=== PATIENT | female | born 1975 | race Caucasian/White ===

== ENCOUNTER 2017-07-22 12:29 | Inpatient (IN) | payer MEDICAID ==
[2017-07-22] MEDS ORDERED: Ondansetron 4 MG/2 ML SDV IVPUSH ONE (12:43)
[2017-07-22] MEDS ORDERED: Sodium Chloride 0.9% 10 ML Syringe FLUSH PRN (12:43)
[2017-07-22] MEDS ORDERED: Sodium Chloride 0.9% 2.5 ML Syringe FLUSH PRN (12:43)
[2017-07-22] MEDS ORDERED: Sodium Chloride 0.9% 1,000 ML IV ONE (12:43)
[2017-07-22] MEDS ORDERED: Ketorolac 30 MG/ML SDV IVPUSH ONE (12:48)
[2017-07-22] MEDS ORDERED: Insulin Regular, Human 100 Units/ML 10 ML Vial SUBCUT ONE (12:48)
--- NOTE | 2017-07-22 12:54 | EDM.PDOC ---
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 Was noted that her blood sugar was elevated and she was also complaining of some left flank pain and vomiting. The patient had a CBC BMP UA and urine culture performed in the clinic and was noted that her blood sugar was 443, a positive urine for UTI, and she had an elevated WBC count of 16,000. The clinic contacted the hospitalist to make her direct admission for pyelonephritis and hyperglycemia and he preferred that she come to the ER for evaluation. Here she reiterates her history of several weeks of left flank pain which has been intermittent and some frequency of urination but no burning or hematuria. She says that the vomiting has been going on for more than a week and she noted that her blood sugar was starting to become more elevated the last 1 week. Patient denies any fevers or chills cough chest pain or shortness of breath and has had only one small loose stool today but otherwise no diarrhea. The patient denies any history of UTIs or kidney stones and says she has had a bilateral tubal ligation is not . Patient says she's been trying to hydrate but it has been hard due to the nausea and the vomiting. When asked about the onset of the flank pain, it was sudden or gradual, she says it was somewhat sudden and she was at work and she thought she might pulled muscle. Review of systems: As per history of present illness and below otherwise all systems reviewed and negative. Past medical history: As per history of present illness and as reviewed below otherwise noncontributory. Surgical history: As per history of present illness and as reviewed below otherwise noncontributory. Social history: No reported history of drug or alcohol abuse. Family history: As per history of present illness and as reviewed below otherwise noncontributory. Physical exam: Gen.: Well-developed very thin female who is nontoxic and speaking clearly and easily in the ED. Vital signs have been reviewed by me. HEENT: Atraumatic, normocephalic, pupils reactive, negative for conjunctival pallor or scleral icterus, mucous membranes tacky, throat clear, neck supple, nontender, trachea midline. Lungs: Clear to auscultation, breath sounds equal bilaterally, chest nontender. Heart: S1S2, regular rate and rhythm no overt murmurs on my evaluation Abdomen: Soft, nondistended, nontender. Completely benign exam with normoactive bowel sounds no rebound and guarding. Negative for masses or hepatosplenomegaly. Negative for costovertebral tenderness even on the left side. Pelvis: Stable nontender. Genitourinary: Deferred. Rectal: Deferred. Extremities: Atraumatic, negative for cords or calf pain. Neurovascular unremarkable. Neuro: Awake, alert, oriented. Cranial nerves II through XII unremarkable. Cerebellum unremarkable. Motor and sensory unremarkable throughout. Exam nonfocal. Diagnostics: Patient had CBC BMP UA and urine culture in the clinic which I reviewed those results We have drawn serum ketones lactic acid and will perform a CT scan of the abdomen and pelvis. Therapeutics: IV fluids Zofran Toradol insulin Zosyn and Rocephin 1438: I discussed the CT scan report with our urologist Dr. Long; he would like our radiologist Dr. Riley to drain this abscess and the hospitalist to admit for IV antibiotics for several days. He said that he would be available for formal consultation as needed for the hospitalist 1450: Case was discussed with our hospitalist as well as our radiologist and I will order a CT-guided drain placement to be performed from the floor. Dr. Chery is currently in the ED evaluating the patient and agrees with [facility] admission inpatient. He also agrees with our management of the glucose it's just insulin subcutaneous and no drip at this time. Critical care time excluding procedures:31min Impression: Left pyelonephritis with perinephric abscess, hyperglycemia without acidosis and minimal ketosis Definitive disposition and diagnosis as appropriate pending reevaluation and review of above. 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 ED EXAM GENERAL NO PERIP PULSE - Physical Exam Exam: See Below (See dictation) Course - Vital Signs Last Recorded V/S: Last Vital Signs Temp 36.3 C 07/22/17 12:32 Pulse 86 07/22/17 14:15 Resp 16 07/22/17 14:15 BP 117/78 07/22/17 14:15 Pulse Ox 100 07/22/17 14:15 - Orders/Labs/Meds Orders: Active Orders 24 hr Category Date Time Status Patient Status [ADT] Stat ADT 07/22/17 14:49 Ordered Drain Abscess or Cyst [CT] Stat Exams 07/22/17 14:50 Ordered CULTURE BLOOD [BC] Stat Lab 07/22/17 14:52 Ordered CULTURE BLOOD [BC] Stat Lab 07/22/17 14:52 Ordered Piperacillin/Tazobactam [Piperacil-Tazobact] 3.375 gm Med 07/22/17 14:42 Active Sodium Chloride 0.9% [Normal Saline] 50 ml IV ONETIME Sodium Chloride 0.9% [Saline Flush] Med 07/22/17 12:43 Active 10 ml FLUSH ASDIRECTED PRN Sodium Chloride 0.9% [Saline Flush] Med 07/22/17 12:43 Active 2.5 ml FLUSH ASDIRECTED PRN Blood Culture x2 Reflex Set [OM.PC] Stat Oth 07/22/17 14:52 Ordered Saline Lock Insert [OM.PC] Stat Oth 07/22/17 12:41 Ordered Medication Orders Piperacillin Sod/Tazobactam (Sod 3.375 gm/ Sodium Chloride) 50 mls @ 100 mls/ hr IV ONETIME ONE Stop: 07/22/17 15:11 Sodium Chloride (Saline Flush) 10 ml FLUSH ASDIRECTED PRN PRN Reason: Keep Vein Open Sodium Chloride (Saline Flush) 2.5 ml FLUSH ASDIRECTED PRN PRN Reason: Keep Vein Open Labs: Laboratory Tests 07/22/17 07/22/17 07/22/17 Range/Units 10:47 12:44 12:56 Lactate 1.0 (0.20-2.00) mmol/L POC Glucose 331 H (60-110) mg/dL Ketones SMALL H (NEG) 07/22/17 Range/Units 13:26 Lactate (0.20-2.00) mmol/L POC Glucose 322 H (60-110) mg/dL Ketones (NEG) Meds: Medications Generic Name Dose Route Start Last Admin Trade Name Freq PRN Reason Stop Dose Admin Piperacillin Sod/Tazobactam 50 mls @ 100 mls/hr 07/22/17 14:42 Sod 3.375 gm/ Sodium Chloride IV 07/22/17 15:11 ONETIME ONE Sodium Chloride 10 ml 07/22/17 12:43 Saline Flush FLUSH ASDIRECTED PRN Keep Vein Open Sodium Chloride 2.5 ml 07/22/17 12:43 Saline Flush FLUSH ASDIRECTED PRN Keep Vein Open Discontinued Medications Generic Name Dose Route Start Last Admin Trade Name Freq PRN Reason Stop Dose Admin Sodium Chloride 1,000 mls @ 999 mls/hr 07/22/17 12:43 07/22/17 12:49 Normal Saline IV 07/22/17 13:43 999 mls/hr STAT ONE Administration Ceftriaxone Sodium/Dextrose 1 50 mls @ 100 mls/hr 07/22/17 13:27 07/22/17 13: 33 gm/ Premix IV 07/22/17 13:56 100 mls/hr ONETIME ONE Administration Insulin Human Regular 15 unit 07/22/17 12:48 07/22/17 12:57 Novolin R SUBCUT 07/22/17 12:49 15 units ONETIME ONE Administration Protocol Iopamidol 60 ml 07/22/17 13:51 07/22/17 13:52 Isovue Multipack-370 (76%) IVPUSH 07/22/17 13:52 60 ml ONETIME STA Administration Ketorolac Tromethamine 30 mg 07/22/17 12:48 07/22/17 12:53 Toradol IVPUSH 07/22/17 12:49 30 mg ONETIME ONE Administration Ondansetron HCl 4 mg 07/22/17 12:43 07/22/17 12:52 Zofran IVPUSH 07/22/17 12:44 4 mg ONETIME ONE Administration Departure - Departure Time of Disposition: 14:54 Disposition: Admitted As Inpatient 68 Condition: Good Clinical Impression: Hyperglycemia, Perinephric abscess - Discharge Information Referrals: PCP,None [Primary Care Provider] - Forms: ED Department Discharge - My Orders Last 24 Hours: My Active Orders 07/22/17 12:41 Saline Lock Insert [OM.PC] Stat 07/22/17 12:43 Sodium Chloride 0.9% [Saline Flush] 10 ml FLUSH ASDIRECTED PRN Sodium Chloride 0.9% [Saline Flush] 2.5 ml FLUSH ASDIRECTED PRN 07/22/17 14:42 Piperacillin/Tazobactam [Piperacil-Tazobact] 3.375 gm Sodium Chloride 0.9% [ Normal Saline] 50 ml IV ONETIME 07/22/17 14:49 Patient Status [ADT] Stat 07/22/17 14:50 Drain Abscess or Cyst [CT] Stat 07/22/17 14:52 CULTURE BLOOD [BC] Stat CULTURE BLOOD [BC] Stat Blood Culture x2 Reflex Set [OM.PC] Stat - Assessment/Plan Last 24 Hours: My Active Orders 07/22/17 12:41 Saline Lock Insert [OM.PC] Stat 07/22/17 12:43 Sodium Chloride 0.9% [Saline Flush] 10 ml FLUSH ASDIRECTED PRN Sodium Chloride 0.9% [Saline Flush] 2.5 ml FLUSH ASDIRECTED PRN 07/22/17 14:42 Piperacillin/Tazobactam [Piperacil-Tazobact] 3.375 gm Sodium Chloride 0.9% [ Normal Saline] 50 ml IV ONETIME 07/22/17 14:49 Patient Status [ADT] Stat 07/22/17 14:50 Drain Abscess or Cyst [CT] Stat 07/22/17 14:52 CULTURE BLOOD [BC] Stat CULTURE BLOOD [BC] Stat Blood Culture x2 Reflex Set [OM.PC] Stat
[2017-07-22] MEDS ORDERED: cefTRIAXone 1 GM in Premix Bag 1 BAG IV ONE (13:27)
[2017-07-22] MEDS ORDERED: Iopamidol 755 MG/ML 500 ML Multipack Bottle IVPUSH STA (13:51)
--- NOTE | 2017-07-22 14:32 | CT ---
CT of the abdomen and pelvis with contrast. HISTORY: Pain TECHNIQUE: Axial CT images were obtained of the abdomen and pelvis following administration of 60 mL of Isovue-370 in the right arm without complication. Coronal and sagittal reconstructions obtained. FINDINGS: The lung bases are clear, no pleural effusion. There is mild focal fatty infiltration of the falciform ligament. The spleen, adrenal glands, and henry creas appear normal. The gallbladder is normal. No bulky retroperitoneal lymphadenopathy. There is a heterogeneous 3.9 x 3.4 x 4.5 cm collection along the inferior pole of the left kidney lik andrey representing a perinephric abscess. There is extension into the left psoas muscle. It is difficul t to separate the proximal ureter from the collection. There is urinary bladder wall thickening also noted. The large and small bowel are normal in caliber without evidence of obstruction. No focal pericolonic inflammation or stranding. The appendix appears normal. There is no bulky pelvic lymphadenopathy. No suspicious osseous abnormalities identified. IMPRESSION: 1. There is a 3.9 x 4.5 cm left perinephric collection most likely an abscess with extension into the psoas muscle. Separation from the ureter is difficult without delayed imaging. Differential also inc ludes a centrally necrotic perinephric neoplasm. 2. Mild bladder wall thickening also noted. 3. Mild generalized stranding throughout the abdomen and pelvis.
[2017-07-22] MEDS ORDERED: Piperacillin/Tazobactam 3.375 GM in Sodium Chloride 0.9% 50 ML IV ONE (14:42)
[2017-07-22] MEDS ORDERED: Acetaminophen 325 MG Tab PO PRN (15:16)
[2017-07-22] MEDS ORDERED: Ondansetron 4 MG/2 ML SDV IVPUSH PRN (15:17)
--- NOTE | 2017-07-22 15:25 | PCM.HP ---
H&P History of Present Illness - General Date of Service: 07/22/17 Admit Problem/Dx: Perinephric abscess Source of Information: Patient History Limitations: Reports: No Limitations - History of Present Illness Initial Comments - Free Text/Narative: This 42 year old female with pmh of Insulin dependent DM and depression presented initially to the clinic then was transferred to ED for further workup. She presented with complaints of being out of insulin x 1 month and L sided flank pain. She denies recent fevers, cough, or chest pain. She reports the pain started about 1 week ago and felt like a pulled back muscle. Nothing has helped the pain, she does take Gabapentin for neuropathy. She denies urinary symptoms. She confirms having N/V and poor appetite and feeling tired recently. She did have a couple days of diarrhea, but that has now passed. Denies black or bloody stools. She reports she has been diabetic since age 22, she initially had gestational DM with each on her three children, but after her third she remained DM. She since has been on insulin. She was hospitalized for DKA last year, which was the first time in a very long time, she was having a hard time in her life and not caring for herself well. In the ED WBC 16,250, Platelets 628, Lactate 1.0 Na 133, Cl 92, Bicarb 31, A1c 15.2, glucose 443. UA negative. BC were obtained. Abdominal CT obtained and revealed 3.9 x 4.5 cm L perinephric collection with extension into the psoas muscle, mild bladder wall thickening and general stranding throughout the abdomen and pelvis. Dr Long was notified by ED, he recommended drainage by Radiology if possible. Dr. Riley, radiologist has agreed to drain this. She was given Zosyn and IVFs along with insulin in ED. She will be admitted to continue IV antibiotics and for drainage of abscess. Left Upper Abdominal Pain Score (Numeric/FACES): 7 - Related Data Allergies/Adverse Reactions: Allergies Allergy/AdvReac Type Severity Reaction Status Date / Time No Known Allergies Allergy Verified 07/22/17 12:37 Home Medications: Home Meds FLUoxetine [PROzac] 20 mg PO DAILY 07/22/17 [History] Gabapentin [Neurontin] 600 mg PO DAILY 07/22/17 [History] Insulin Glargine,Hum.Rec.Anlog [Lantus Solostar] 15 units SUBCNJ DAILY 07/22/17 [History] Insulin Lispro [Humalog Kwikpen U-100] 4 units SUBCNJ ASDIRECTED 07/22/17 [ History] Past Medical History Cardiovascular History: Reports: None. Denies: Afib, Blood Clots/VTE/DVT, CAD, Hypertension, GA Respiratory History: Reports: None. Denies: COPD, PE, Sleep Apnea, SOB Gastrointestinal History: Reports: None. Denies: GERD, GI Bleed Genitourinary History: Reports: None. 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 Denies: CVA, TIA Psychiatric History: Reports: Depression Endocrine/Metabolic History: Reports: Diabetes, Type I. Denies: Hypothyroidism - Infectious Disease History Infectious Disease History: Denies: MRSA, VRE Social & Family History - Family History Family Medical History: Noncontributory - Tobacco Use Smoking Status *Q: Never Smoker - Caffeine Use Caffeine Use: Reports: Coffee, Tea - Alcohol Use Alcohol Use History: No - Recreational Drug Use Recreational Drug Use: Yes Recreational Drug Type: Reports: Marijuana/Hashish Recreational Drug Use Frequency: Daily - Living Situation & Occupation Living situation: Reports: Social History Comment: Here visiting her sister, has been here for about 1 month H&P Review of Systems - Review of Systems: Review Of Systems: See Below General: Reports: Malaise, Fatigue. Denies: Fever, Chills HEENT: Reports: No Symptoms. Denies: Headaches, Sinus Congestion, Visual Changes Pulmonary: Reports: No Symptoms. Denies: Shortness of Breath Cardiovascular: Reports: No Symptoms. Denies: Chest Pain, Palpitations, Edema, Lightheadedness, Blood Pressure Problem Gastrointestinal: Reports: Abdominal Pain, Nausea, Vomiting. Denies: Black Stool, Bloody Stool, Diarrhea Genitourinary: Reports: Frequency, Flank Pain (L flank). Denies: Dysuria, Burning, Incontinence Musculoskeletal: Reports: No Symptoms. Denies: Neck Pain Skin: Reports: No Symptoms Psychiatric: Reports: No Symptoms Neurological: Reports: No Symptoms Hematologic/Lymphatic: Reports: No Symptoms Immunologic: Reports: No Symptoms Exam - Exam Exam: See Below - Vital Signs Vital Signs: Last Vital Signs Temp 97.3 F 07/22/17 12:32 Pulse 86 07/22/17 14:15 Resp 16 07/22/17 14:15 BP 117/78 07/22/17 14:15 Pulse Ox 100 07/22/17 14:15 Weight: 40 kg - Exam General: Alert, Oriented, Cooperative HEENT: Conjunctiva Clear, Hearing Intact, Mucosa Moist & [place], Nares Patent, Posterior Pharynx Clear, Other (missing teeth) Neck: Supple, Trachea Midline, 2 Lungs: Clear to Auscultation, Normal Respiratory Effort Cardiovascular: Regular Rate, Regular Rhythm GI/Abdominal Exam: Normal Bowel Sounds, Soft, Tender (L quadrant). No: Distended, Guarding Back Exam: Normal Inspection, Full Range of Motion, CVA Tenderness (L) Extremities: Normal Inspection, Normal Range of Motion, Non-Tender, No Pedal Edema, Normal Capillary Refill Skin: Warm, Dry, Intact Neuro Extensive - Mental Status: Alert, Oriented x3, Normal Mood/Affect, Normal Cognition Psychiatric: Alert, Normal Affect, Normal Mood *Q Meaningful Use (ADM) - VTE *Q VTE Criteria *Q: - Stroke *Q Stroke Criteria *Q: - AMI *Q AMI Criteria *Q: - Problem List (1) Perinephric abscess SNOMED Code(s): 86639022 ICD Code: N15.1 - RENAL AND PERINEPHRIC ABSCESS Status: Acute Current Visit: Yes (2) Hyperglycemia SNOMED Code(s): 47111650 ICD Code: R73.9 - HYPERGLYCEMIA, UNSPECIFIED Status: Acute Current Visit : Yes (3) Uncontrolled diabetes mellitus SNOMED Code(s): 877687840, 437941021 ICD Code: E11.65 - TYPE 2 DIABETES MELLITUS WITH HYPERGLYCEMIA Status: Acute Current Visit: Yes Qualifiers: Diabetes mellitus type: type 1 Diabetes mellitus complication status: with neurologic complications Diabetes mellitus complication detail: with polyneuropathy Qualified Code(s): E10.42 - Type 1 diabetes mellitus with diabetic polyneuropathy; E10.65 - Type 1 diabetes mellitus with hyperglycemia (4) Depression SNOMED Code(s): 62084955 ICD Code: F32.9 - MAJOR DEPRESSIVE DISORDER, SINGLE EPISODE, UNSPECIFIED Status: Chronic Current Visit: Yes Qualifiers: Depression Type: major depressive disorder Major depression recurrence: single episode Active/Remission status: currently active Major depression episode severity: mild Qualified Code(s): F32.0 - Major depressive disorder, single episode, mild Problem List Initiated/Reviewed/Updated: Yes Orders Last 24hrs: Active Orders 24 hr Category Date Time Status Antiembolic Devices [RC] PER UNIT ROUTINE Care 07/22/17 15:17 Ordered Blood Glucose Check, Bedside [RC] TIDAC Care 07/22/17 15:22 Ordered Intake and Output [RC] QSHIFT Care 07/22/17 15:16 Ordered Oxygen Therapy [RC] PRN Care 07/22/17 15:16 Ordered Up ad [place]enzie [RC] ASDIRECTED Care 07/22/17 15:16 Ordered VTE/DVT Education [RC] PER UNIT ROUTINE Care 07/22/17 15:16 Ordered Vital Signs [RC] Q4H Care 07/22/17 15:16 Ordered Consult to Diabetic Nurse Specialist [CONS] Routine Cons 07/22/17 15:17 Ordered [employer] Diet [DIET] Diet 07/22/17 Dinner Ordered CBC WITH AUTO DIFF [HEME] AM Lab 07/23/17 05:11 Ordered CBC WITH AUTO DIFF [HEME] AM Lab 07/24/17 05:11 Ordered CBC WITH AUTO DIFF [HEME] AM Lab 07/25/17 05:11 Ordered CBC WITH AUTO DIFF [HEME] AM Lab 07/26/17 05:11 Ordered COMPREHENSIVE METABOLIC PN,CMP [CHEM] AM Lab 07/23/17 05:11 Ordered COMPREHENSIVE METABOLIC PN,CMP [CHEM] AM Lab 07/24/17 05:11 Ordered COMPREHENSIVE METABOLIC PN,CMP [CHEM] AM Lab 07/25/17 05:11 Ordered COMPREHENSIVE METABOLIC PN,CMP [CHEM] AM Lab 07/26/17 05:11 Ordered MAGNESIUM [CHEM] AM Lab 07/23/17 05:11 Ordered MAGNESIUM [CHEM] AM Lab 07/24/17 05:11 Ordered MAGNESIUM [CHEM] AM Lab 07/25/17 05:11 Ordered MAGNESIUM [CHEM] AM Lab 07/26/17 05:11 Ordered Acetaminophen [Tylenol] Med 07/22/17 15:16 Ordered 650 mg PO Q4H PRN Acetaminophen/HYDROcodone [[place] 325-5 MG] Med 07/22/17 15:16 Ordered 1 tab PO Q4H PRN FLUoxetine [PROzac] Med 07/23/17 09:00 Ordered 20 mg PO DAILY Gabapentin Med 07/23/17 09:00 Ordered 600 mg PO DAILY Insulin Aspart [NovoLOG] Med 07/22/17 17:30 Ordered See Protocol SUBCUT TIDAC Insulin Glarg,Human.Rec.Analog [LantUS Solostar] Med 07/22/17 21:00 Ordered 15 units SUBCUT BEDTIME Morphine Med 07/22/17 15:16 Ordered 2 mg IVPUSH Q2H PRN Ondansetron [Zofran] Med 07/22/17 15:17 Ordered 4 mg IVPUSH Q4H PRN Piperacillin/Tazobactam [Piperacil-Tazobact] 3.375 gm Med 07/22/17 21:00 Ordered Sodium Chloride 0.9% [Normal Saline] 50 ml IV Q6H Sodium Chloride 0.9% @ 125 MLS/HR (1000ml) Med 07/22/17 15:30 Ordered Sodium Chloride 0.9% [Normal Saline] 1,000 ml IV ASDIRECTED Sequential Compression Device [OM.PC] Per Unit Routine Oth 07/22/17 15:17 Ordered Resuscitation Status Routine Resus Stat 07/22/17 15:16 Ordered Medication Orders Acetaminophen (Tylenol) 650 mg PO Q4H PRN PRN Reason: Pain Hydrocodone Bitart/Acetaminophen ([place] 325-5 Mg) 1 tab PO Q4H PRN PRN Reason: Pain (moderate 4-6) Fluoxetine HCl (Prozac) 20 mg PO DAILY [place] Sodium Chloride (Normal Saline) 1,000 mls @ 125 mls/hr IV ASDIRECTED [place] Piperacillin Sod/Tazobactam (Sod 3.375 gm/ Sodium Chloride) 50 mls @ 100 mls/ hr IV Q6H [place] Insulin Aspart (Novolog) 0 unit SUBCUT TIDAC [place] PRN Reason: Protocol Insulin Glargine (Lantus Solostar) 15 units SUBCUT BEDTIME [place] Morphine Sulfate (Morphine) 2 mg IVPUSH Q2H PRN PRN Reason: Pain (severe 7-10) Non-Formulary Medication (Gabapentin) 600 mg PO DAILY [place] Ondansetron HCl (Zofran) 4 mg IVPUSH Q4H PRN PRN Reason: Nausea Sodium Chloride (Saline Flush) 10 ml FLUSH ASDIRECTED PRN PRN Reason: Keep Vein Open Sodium Chloride (Saline Flush) 2.5 ml FLUSH ASDIRECTED PRN PRN Reason: Keep Vein Open Assessment/Plan Comment:: This 42 year old female admitted with pernephric abscess 1. Perinephric abscess: Dr. Mary Riley to drain in the am. Will conitnue with Zosyn. BC pending. does not appear toxic. Will need IV antibiotics for a few days. 2. DM type 1: Will place on Novolog SSI, Lantus BID dosing as per home regimen. WIll monitor closely with concurrent infection. No DKA noted. VTE prophylaxis: SCDs for now pending procedure in am. Dispo: 3-4 days pending improvement.
[2017-07-22] MEDS: Sodium Chloride 0.9% 1,000 ML IV SCH (15:30)
[2017-07-22] MEDS ORDERED: Insulin Aspart 100 Units/ML 3 ML Pen SUBCUT SCH (17:30)
[2017-07-22] MEDS ORDERED: FLU Vacc QS 2017-18 (36mos UP)/PF 60 MCG/0.5 ML Syringe IM ONE (18:15)
[2017-07-22] MEDS ORDERED: Insulin Glargine,Human Rec. Analog 100 Units/ML 3 ML Pen SUBCUT SCH (21:00)
[2017-07-22] MEDS: Gabapentin 300 MG Cap PO SCH (21:30)
[2017-07-22] MEDS: Piperacillin/Tazobactam 3.375 GM in Sodium Chloride 0.9% 50 ML IV SCH (21:30)
[2017-07-22] MEDS: Insulin Glargine,Human Rec. Analog 100 Units/ML 3 ML Pen SUBCUT SCH (21:30)
[2017-07-22] MEDS: Acetaminophen/HYDROcodone 325-5 MG Tab PO PRN (21:37)
[2017-07-22] MEDS: Insulin Aspart 100 Units/ML 3 ML Pen SUBCUT SCH (21:50)
[2017-07-23] MEDS: Sodium Chloride 0.9% 1,000 ML IV SCH ×3 (00:06→19:49)
[2017-07-23] MEDS: Piperacillin/Tazobactam 3.375 GM in Sodium Chloride 0.9% 50 ML IV SCH ×4 (02:20→21:34)
[2017-07-23 05:56] LABS: CHLORIDE,CL 102 mmol/L (98-110); SODIUM,NA 136 mmol/L (136-146)
[2017-07-23] MEDS: Insulin Aspart 100 Units/ML 3 ML Pen SUBCUT SCH ×4 (08:01→21:35)
[2017-07-23] MEDS ORDERED: Potassium Chloride 20 MEQ Tab.ER PO ONE ×2 (08:06→17:00)
[2017-07-23] MEDS ORDERED: Magnesium Sulfate/Water 4 GM in Premix Bag 1 BAG IV ONE (08:07)
[2017-07-23] MEDS: FLUoxetine 20 MG Cap PO SCH (08:40)
[2017-07-23] MEDS: Insulin Glargine,Human Rec. Analog 100 Units/ML 3 ML Pen SUBCUT SCH ×2 (08:42→21:34)
[2017-07-23] MEDS ORDERED: Gabapentin 300 MG Cap PO SCH (09:00)
[2017-07-23] MEDS: Acetaminophen/HYDROcodone 325-5 MG Tab PO PRN ×2 (09:25→19:53)
--- NOTE | 2017-07-23 09:31 | PCM.PN ---
- General Info Date of Service: 07/23/17 Admission Dx/Problem (Free Text): Perinephric abscess Subjective Update: Feeling ok this am, still having L flank pain, but controlled well with pain medications. No chest pain, SOB or fevers overnight. Eager to speak with DM educator today. Functional Status: Reports: Pain Controlled, Tolerating Diet, Ambulating, Urinating - Review of Systems General: Reports: No Symptoms. Denies: Fever Pulmonary: Reports: No Symptoms. Denies: Shortness of Breath Cardiovascular: Reports: No Symptoms. Denies: Chest Pain Gastrointestinal: Reports: Abdominal Pain. Denies: Diarrhea, Flatus, Nausea, Vomiting Genitourinary: Reports: Flank Pain (left) Musculoskeletal: Reports: No Symptoms Skin: Reports: No Symptoms Neurological: Reports: No Symptoms Psychiatric: Reports: No Symptoms - Patient Data Vitals - Most Recent: Last Vital Signs Temp 98.3 F 07/23/17 08:25 Pulse 62 07/23/17 04:00 Resp 18 07/23/17 08:25 BP 128/77 07/23/17 08:25 Pulse Ox 100 07/23/17 08:25 Weight - Most Recent: 40.914 kg I&O - Last 24 Hours: Intake & Output 07/22/17 07/23/17 07/23/17 22:59 06:59 14:59 Intake Total 100 1224 1050 Output Total 600 Balance 693 829 9612 Lab Results Last 24 Hours: Laboratory Results - last 24 hr 07/22/17 07/22/17 07/23/17 Range/Units 16:44 21:19 05:00 WBC 14.85 H (4.0-11.0) K/uL RBC 4.08 L (4.30-5.90) M/uL Hgb 11.8 L (12.0-16.0) g/dL Hct 35.9 L (36.0-46.0) % MCV 88.0 (80.0-98.0) fL MCH 28.9 (27.0-32.0) pg MCHC 32.9 (31.0-37.0) g/dL RDW Std Deviation 39.4 (28.0-62.0) fl RDW Coeff of Janette 12 (11.0-15.0) % Plt Count 620 H (150-400) K/uL MPV 9.70 (7.40-12.00) fL Neut % (Auto) 69.7 (48.0-80.0) % Lymph % (Auto) 22.5 (16.0-40.0) % [place]ett[place] % (Auto) 6.3 (0.0-15.0) % Eos % (Auto) 1.3 (0.0-7.0) % Baso % (Auto) 0.2 (0.0-1.5) % Neut # (Auto) 10.4 H (1.4-5.7) K/uL Lymph # (Auto) 3.3 H (0.6-2.4) K/uL Pettis # (Auto) 0.9 H (0.0-0.8) K/uL Eos # (Auto) 0.2 (0.0-0.7) K/uL Baso # (Auto) 0.0 (0.0-0.1) K/uL Nucleated RBC % 0.0 /100WBC Nucleated RBCs # 0 K/uL Sodium (136-146) mmol/L Potassium (3.5-5.1) mmol/L Chloride (98-110) mmol/L Carbon Dioxide (21-31) mmol/L BUN (6.0-23.0) mg/dL Creatinine (0.6-1.5) mg/dL Est Cr Clr Drug Dosing mL/min Estimated GFR (MDRD) ml/min Glucose (60-110) mg/dL POC Glucose 89 372 H (60-110) mg/dL Calcium (8.8-10.8) mg/dL Magnesium (1.5-2.3) mEq/L Total Bilirubin (0.1-1.5) mg/dL AST (5-40) IU/L ALT (8-54) IU/L Alkaline Phosphatase (40-150) Total Protein (6.0-8.0) g/dL Albumin (3.5-5.0) g/dL Globulin (2.0-3.5) g/dL Albumin/Globulin Ratio (1.3-2.8) 07/23/17 Range/Units 05:00 WBC (4.0-11.0) K/uL RBC (4.30-5.90) M/uL Hgb (12.0-16.0) g/dL Hct (36.0-46.0) % MCV (80.0-98.0) fL MCH (27.0-32.0) pg MCHC (31.0-37.0) g/dL RDW Std Deviation (28.0-62.0) fl RDW Coeff of Janette (11.0-15.0) % Plt Count (150-400) K/uL MPV (7.40-12.00) fL Neut % (Auto) (48.0-80.0) % Lymph % (Auto) (16.0-40.0) % [place] % (Auto) (0.0-15.0) % Eos % (Auto) (0.0-7.0) % Baso % (Auto) (0.0-1.5) % Neut # (Auto) (1.4-5.7) K/uL Lymph # (Auto) (0.6-2.4) K/uL [place] # (Auto) (0.0-0.8) K/uL Eos # (Auto) (0.0-0.7) K/uL Baso # (Auto) (0.0-0.1) K/uL Nucleated RBC % /100WBC Nucleated RBCs # K/uL Sodium 136 (136-146) mmol/L Potassium 3.1 L (3.5-5.1) mmol/L Chloride 102 (98-110) mmol/L Carbon Dioxide 27 (21-31) mmol/L BUN 13 (6.0-23.0) mg/dL Creatinine 0.6 (0.6-1.5) mg/dL Est Cr Clr Drug Dosing 80.50 mL/min Estimated GFR (MDRD) > 60.0 ml/min Glucose 243 H (60-110) mg/dL POC Glucose (60-110) mg/dL Calcium 8.2 L (8.8-10.8) mg/dL Magnesium 1.2 L (1.5-2.3) mEq/L Total Bilirubin 0.2 (0.1-1.5) mg/dL AST 19 (5-40) IU/L ALT 8 (8-54) IU/L Alkaline Phosphatase 130 (40-150) Total Protein 6.5 (6.0-8.0) g/dL Albumin 2.8 L (3.5-5.0) g/dL Globulin 3.7 H (2.0-3.5) g/dL Albumin/Globulin Ratio 0.8 L (1.3-2.8) Med Orders - Current: Current Medications Acetaminophen (Tylenol) 650 mg PO Q4H PRN PRN Reason: Pain Hydrocodone Bitart/Acetaminophen ([place] 325-5 Mg) 1 tab PO Q4H PRN PRN Reason: Pain (moderate 4-6) Last Admin: 07/23/17 09:25 Dose: 1 tab Fluoxetine HCl (Prozac) 20 mg PO DAILY [facility] Last Admin: 07/23/17 08:40 Dose: 20 mg Gabapentin (Neurontin) 600 mg PO BEDTIME [facility] Last Admin: 07/22/17 21:30 Dose: 600 mg Sodium Chloride (Normal Saline) 1,000 mls @ 125 mls/hr IV ASDIRECTED [facility] Last Admin: 07/23/17 08:11 Dose: 125 mls/hr Piperacillin Sod/Tazobactam (Sod 3.375 gm/ Sodium Chloride) 50 mls @ 100 mls/ hr IV Q6H [facility] Last Admin: 07/23/17 08:08 Dose: 100 mls/hr Magnesium Sulfate 4 gm/ Premix 100 mls @ 50 mls/hr IV ONETIME ONE Stop: 07/23/17 10:06 Last Admin: 07/23/17 09:05 Dose: 50 mls/hr Insulin Aspart (Novolog) 0 unit SUBCUT ACBED [facility] PRN Reason: Protocol Last Admin: 07/23/17 08:01 Dose: 4 units Insulin Glargine (Lantus Solostar) 15 units SUBCUT BID [facility] Last Admin: 07/23/17 08:42 Dose: 15 units Morphine Sulfate (Morphine) 2 mg IVPUSH Q2H PRN PRN Reason: Pain (severe 7-10) Ondansetron HCl (Zofran) 4 mg IVPUSH Q4H PRN PRN Reason: Nausea Sodium Chloride (Saline Flush) 10 ml FLUSH ASDIRECTED PRN PRN Reason: Keep Vein Open Sodium Chloride (Saline Flush) 2.5 ml FLUSH ASDIRECTED PRN PRN Reason: Keep Vein Open Discontinued Medications Gabapentin (Neurontin) 600 mg PO DAILY [facility] Sodium Chloride (Normal Saline) 1,000 mls @ 999 mls/hr IV STAT ONE Stop: 07/22/17 13:43 Last Admin: 07/22/17 12:49 Dose: 999 mls/hr Ceftriaxone Sodium/Dextrose 1 (gm/ Premix) 50 mls @ 100 mls/hr IV ONETIME ONE Stop: 07/22/17 13:56 Last Admin: 07/22/17 13:33 Dose: 100 mls/hr Piperacillin Sod/Tazobactam (Sod 3.375 gm/ Sodium Chloride) 50 mls @ 100 mls/ hr IV ONETIME ONE Stop: 07/22/17 15:11 Last Admin: 07/22/17 15:24 Dose: 100 mls/hr Insulin Aspart (Novolog) 0 unit SUBCUT TIDAC [facility] PRN Reason: Protocol Last Admin: 07/22/17 17:21 Dose: Not Given Insulin Glargine (Lantus Solostar) 15 units SUBCUT BEDTIME [facility] Insulin Human Regular (Novolin R) 15 unit SUBCUT ONETIME ONE PRN Reason: Protocol Stop: 07/22/17 12:49 Last Admin: 07/22/17 12:57 Dose: 15 units Iopamidol (Isovue Multipack-370 (76%)) 60 ml IVPUSH ONETIME STA Stop: 07/22/17 13:52 Last Admin: 07/22/17 13:52 Dose: 60 ml Ketorolac Tromethamine (Toradol) 30 mg IVPUSH ONETIME ONE Stop: 07/22/17 12:49 Last Admin: 07/22/17 12:53 Dose: 30 mg Ondansetron HCl (Zofran) 4 mg IVPUSH ONETIME ONE Stop: 07/22/17 12:44 Last Admin: 07/22/17 12:52 Dose: 4 mg Potassium Chloride (Klor-Con M20) 40 meq PO ONETIME ONE Stop: 07/23/17 08:07 Last Admin: 07/23/17 08:41 Dose: 40 meq - Exam General: Alert, Oriented, Cooperative, No Acute Distress Neck: Supple Lungs: Clear to Auscultation, Normal Respiratory Effort Cardiovascular: Regular Rate, Regular Rhythm GI/Abdominal Exam: Normal Bowel Sounds, Soft, No Organomegaly, No Distention, No Abnormal Bruit, No Mass, Pelvis Stable, Tender (LLQ) Back Exam: Full Range of Motion, CVA Tenderness (L) Extremities: Normal Inspection, Normal Range of Motion, Non-Tender, No Pedal Edema, Normal Capillary Refill Neurological: No New Focal Deficit Psy/Mental Status: Alert, Normal Affect, Normal Mood - Problem List & Annotations (1) Perinephric abscess SNOMED Code(s): 29382715 Code(s): N15.1 - RENAL AND PERINEPHRIC ABSCESS Status: Acute Current Visit: Yes (2) Hyperglycemia SNOMED Code(s): 68814277 Code(s): R73.9 - HYPERGLYCEMIA, UNSPECIFIED Status: Acute Current Visit: Yes (3) Uncontrolled diabetes mellitus SNOMED Code(s): 898226470, 309881292 Code(s): E11.65 - TYPE 2 DIABETES MELLITUS WITH HYPERGLYCEMIA Status: Acute Current Visit: Yes Qualifiers: Diabetes mellitus type: type 1 Diabetes mellitus complication status: with neurologic complications Diabetes mellitus complication detail: with polyneuropathy Qualified Code(s): E10.42 - Type 1 diabetes mellitus with diabetic polyneuropathy; E10.65 - Type 1 diabetes mellitus with hyperglycemia (4) Depression SNOMED Code(s): 49117617 Code(s): F32.9 - MAJOR DEPRESSIVE DISORDER, SINGLE EPISODE, UNSPECIFIED Status: Chronic Current Visit: Yes Qualifiers: Depression Type: major depressive disorder Major depression recurrence: single episode Active/Remission status: currently active Major depression episode severity: mild Qualified Code(s): F32.0 - Major depressive disorder, single episode, mild - Problem List Review Problem List Initiated/Reviewed/Updated: Yes - My Orders Last 24 Hours: My Active Orders 07/22/17 15:16 Intake and Output [RC] Q12H Oxygen Therapy [RC] PRN Up ad Mackenzie [RC] ASDIRECTED VTE/DVT Education [RC] PER UNIT ROUTINE Vital Signs [RC] Q4H Acetaminophen [Tylenol] 650 mg PO Q4H PRN Acetaminophen/HYDROcodone [[place] 325-5 MG] 1 tab PO Q4H PRN Morphine 2 mg IVPUSH Q2H PRN Resuscitation Status Routine 07/22/17 15:17 Antiembolic Devices [RC] PER UNIT ROUTINE Consult to Diabetic Nurse Specialist [CONS] Routine Ondansetron [Zofran] 4 mg IVPUSH Q4H PRN Sequential Compression Device [OM.PC] Per Unit Routine 07/22/17 15:22 Blood Glucose Check, Bedside [RC] TIDAC 07/22/17 15:30 Sodium Chloride 0.9% [Normal Saline] 1,000 ml IV ASDIRECTED 07/22/17 21:00 Insulin Glarg,Human.Rec.Analog [LantUS Solostar] 15 units SUBCUT BID Piperacillin/Tazobactam [Piperacil-Tazobact] 3.375 gm Sodium Chloride 0.9% [ Normal Saline] 50 ml IV Q6H 07/22/17 Dinner [employer] Diet [DIET] 07/23/17 08:07 Magnesium Sulfate/Water [Magnesium Sulfate 4 GM in Water 100 ML] 4 gm Premix Bag 1 bag IV ONETIME 07/23/17 09:00 FLUoxetine [PROzac] 20 mg PO DAILY 07/24/17 05:11 CBC WITH AUTO DIFF [HEME] AM COMPREHENSIVE METABOLIC PN,CMP [CHEM] AM MAGNESIUM [CHEM] AM 07/25/17 05:11 CBC WITH AUTO DIFF [HEME] AM COMPREHENSIVE METABOLIC PN,CMP [CHEM] AM MAGNESIUM [CHEM] AM 07/26/17 05:11 CBC WITH AUTO DIFF [HEME] AM COMPREHENSIVE METABOLIC PN,CMP [CHEM] AM MAGNESIUM [CHEM] AM - Plan Plan:: This 42 year old female admitted with pernephric abscess 1. Perinephric abscess: Dr. Mary Riley to drain this morning. Will conitnue with Zosyn. BC pending. Continue Zosyn, leukocytosis improving. will need IV antibiotics for a few days. 2. DM type 1: BS improving. Will place on Novolog SSI, Lantus BID dosing as per home regimen. Will monitor closely with concurrent infection. VTE prophylaxis: SCDs for now pending procedure today. Dispo: 3-4 days pending improvement.
[2017-07-23] MEDS: Morphine 2 MG/ML Syringe IVPUSH PRN ×2 (11:42→16:17)
[2017-07-23] MEDS ORDERED: Iopamidol 755 MG/ML 500 ML Multipack Bottle IVPUSH STA (12:03)
--- NOTE | 2017-07-23 15:50 | CT ---
EXAMINATION: CT guided left perinephric drain placement HISTORY: Abscess COMPARISON: CT dated 07/22/2017 TECHNIQUE: The procedure, risks, and benefits were discussed with the patient. Written informed conse nt was obtained. Risks included bleeding, infection, adjacent organ injury, and the possible need for surgical intervention. The patient was placed prone along the CT table. An adequate location was fina ntified. The overlying area was sterilely prepped and draped. 1% lidocaine was administered for local anesthesia. Approximate 10 mL Isovue is administered and the patient's IV to help differentiate the abscess from the kidney. Using CT guidance a 21-gauge needle was advanced into the perinephric fluid collection. Suction was applied to the needle and a small amount of purulent material was withdrawn d emonstrating good needle position within the abscess. An 018 wire was advanced into the collection. A small dilator was then placed into the abscess and an 038 wire was advanced. The tract was dilated u p to 10 Angolan and a 10 Angolan pigtail catheter was advanced and secured in the abscess. Approximatel y 10 mL of blood tinged purulent material was then withdrawn. This was sent for Gram stain and cultur e. The catheter was secured. The patient tolerated the procedure well. No immediate complications. IMPRESSION: Successful CT-guided pigtail drain placement into a left perinephric abscess.
[2017-07-23] MEDS: Gabapentin 300 MG Cap PO SCH (21:33)
[2017-07-24] MEDS: Piperacillin/Tazobactam 3.375 GM in Sodium Chloride 0.9% 50 ML IV SCH ×4 (03:47→21:11)
[2017-07-24] MEDS: Acetaminophen/HYDROcodone 325-5 MG Tab PO PRN (04:08)
[2017-07-24] MEDS: Sodium Chloride 0.9% 1,000 ML IV SCH ×3 (04:26→20:52)
[2017-07-24 06:15] LABS: CHLORIDE,CL 107 mmol/L (98-110); SODIUM,NA 135 mmol/L (136-146)
[2017-07-24] MEDS: Insulin Aspart 100 Units/ML 3 ML Pen SUBCUT SCH ×4 (07:48→21:04)
[2017-07-24] MEDS: FLUoxetine 20 MG Cap PO SCH (09:00)
[2017-07-24] MEDS: Insulin Glargine,Human Rec. Analog 100 Units/ML 3 ML Pen SUBCUT SCH ×2 (09:07→21:05)
[2017-07-24] MEDS: Magnesium Oxide 400 MG Tab PO SCH ×2 (14:33→20:49)
[2017-07-24] MEDS: Morphine 2 MG/ML Syringe IVPUSH PRN ×2 (15:27→21:30)
--- NOTE | 2017-07-24 17:05 | PCM.PN ---
- General Info Date of Service: 07/24/17 Subjective Update: no new complaints - Patient Data Vitals - Most Recent: Last Vital Signs Temp 98.2 F 07/24/17 16:00 Pulse 93 07/24/17 16:00 Resp 14 07/24/17 16:00 BP 150/68 H 07/24/17 16:00 Pulse Ox 97 07/24/17 16:00 Weight - Most Recent: 40.914 kg I&O - Last 24 Hours: Intake & Output 07/24/17 07/24/17 07/24/17 06:59 14:59 22:59 Intake Total 1339 1049 Output Total 1115 Balance 224 1049 Lab Results Last 24 Hours: Laboratory Results - last 24 hr 07/23/17 07/23/17 07/24/17 Range/Units 16:39 21:32 05:35 WBC 13.31 H (4.0-11.0) K/uL RBC 3.35 L (4.30-5.90) M/uL Hgb 9.5 L (12.0-16.0) g/dL Hct 29.5 L (36.0-46.0) % MCV 88.1 (80.0-98.0) fL MCH 28.4 (27.0-32.0) pg MCHC 32.2 (31.0-37.0) g/dL RDW Std Deviation 40.1 (28.0-62.0) fl RDW Coeff of Janette 12 (11.0-15.0) % Plt Count 482 H (150-400) K/uL MPV 9.50 (7.40-12.00) fL Neut % (Auto) 70.2 (48.0-80.0) % Lymph % (Auto) 21.6 (16.0-40.0) % [place] % (Auto) 7.2 (0.0-15.0) % Eos % (Auto) 0.8 (0.0-7.0) % Baso % (Auto) 0.2 (0.0-1.5) % Neut # (Auto) 9.4 H (1.4-5.7) K/uL Lymph # (Auto) 2.9 H (0.6-2.4) K/uL [place] # (Auto) 1.0 H (0.0-0.8) K/uL Eos # (Auto) 0.1 (0.0-0.7) K/uL Baso # (Auto) 0.0 (0.0-0.1) K/uL Nucleated RBC % 0.0 /100WBC Nucleated RBCs # 0 K/uL Sodium (136-146) mmol/L Potassium (3.5-5.1) mmol/L Chloride (98-110) mmol/L Carbon Dioxide (21-31) mmol/L BUN (6.0-23.0) mg/dL Creatinine (0.6-1.5) mg/dL Est Cr Clr Drug Dosing mL/min Estimated GFR (MDRD) ml/min Glucose (60-110) mg/dL POC Glucose 138 H 153 H (60-110) mg/dL Calcium (8.8-10.8) mg/dL Magnesium (1.5-2.3) mEq/L Total Bilirubin (0.1-1.5) mg/dL AST (5-40) IU/L ALT (8-54) IU/L Alkaline Phosphatase (40-150) Total Protein (6.0-8.0) g/dL Albumin (3.5-5.0) g/dL Globulin (2.0-3.5) g/dL Albumin/Globulin Ratio (1.3-2.8) 07/24/17 07/24/17 07/24/17 Range/Units 05:35 06:28 08:59 WBC (4.0-11.0) K/uL RBC (4.30-5.90) M/uL Hgb (12.0-16.0) g/dL Hct (36.0-46.0) % MCV (80.0-98.0) fL MCH (27.0-32.0) pg MCHC (31.0-37.0) g/dL RDW Std Deviation (28.0-62.0) fl RDW Coeff of Janette (11.0-15.0) % Plt Count (150-400) K/uL MPV (7.40-12.00) fL Neut % (Auto) (48.0-80.0) % Lymph % (Auto) (16.0-40.0) % [place] % (Auto) (0.0-15.0) % Eos % (Auto) (0.0-7.0) % Baso % (Auto) (0.0-1.5) % Neut # (Auto) (1.4-5.7) K/uL Lymph # (Auto) (0.6-2.4) K/uL [place] # (Auto) (0.0-0.8) K/uL Eos # (Auto) (0.0-0.7) K/uL Baso # (Auto) (0.0-0.1) K/uL Nucleated RBC % /100WBC Nucleated RBCs # K/uL Sodium 135 L (136-146) mmol/L Potassium 3.8 (3.5-5.1) mmol/L Chloride 107 (98-110) mmol/L Carbon Dioxide 26 (21-31) mmol/L BUN 6 (6.0-23.0) mg/dL Creatinine 0.5 L (0.6-1.5) mg/dL Est Cr Clr Drug Dosing 96.60 mL/min Estimated GFR (MDRD) > 60.0 ml/min Glucose 187 H (60-110) mg/dL POC Glucose 150 H 166 H (60-110) mg/dL Calcium 7.0 L (8.8-10.8) mg/dL Magnesium 1.4 L (1.5-2.3) mEq/L Total Bilirubin 0.2 (0.1-1.5) mg/dL AST 11 (5-40) IU/L ALT < 6 L (8-54) IU/L Alkaline Phosphatase 86 (40-150) Total Protein 5.2 L (6.0-8.0) g/dL Albumin 2.2 L (3.5-5.0) g/dL Globulin 3.0 (2.0-3.5) g/dL Albumin/Globulin Ratio 0.7 L (1.3-2.8) 07/24/17 Range/Units 11:19 WBC (4.0-11.0) K/uL RBC (4.30-5.90) M/uL Hgb (12.0-16.0) g/dL Hct (36.0-46.0) % MCV (80.0-98.0) fL MCH (27.0-32.0) pg MCHC (31.0-37.0) g/dL RDW Std Deviation (28.0-62.0) fl RDW Coeff of Janette (11.0-15.0) % Plt Count (150-400) K/uL MPV (7.40-12.00) fL Neut % (Auto) (48.0-80.0) % Lymph % (Auto) (16.0-40.0) % [place] % (Auto) (0.0-15.0) % Eos % (Auto) (0.0-7.0) % Baso % (Auto) (0.0-1.5) % Neut # (Auto) (1.4-5.7) K/uL Lymph # (Auto) (0.6-2.4) K/uL [place] # (Auto) (0.0-0.8) K/uL Eos # (Auto) (0.0-0.7) K/uL Baso # (Auto) (0.0-0.1) K/uL Nucleated RBC % /100WBC Nucleated RBCs # K/uL Sodium (136-146) mmol/L Potassium (3.5-5.1) mmol/L Chloride (98-110) mmol/L Carbon Dioxide (21-31) mmol/L BUN (6.0-23.0) mg/dL Creatinine (0.6-1.5) mg/dL Est Cr Clr Drug Dosing mL/min Estimated GFR (MDRD) ml/min Glucose (60-110) mg/dL POC Glucose 233 H (60-110) mg/dL Calcium (8.8-10.8) mg/dL Magnesium (1.5-2.3) mEq/L Total Bilirubin (0.1-1.5) mg/dL AST (5-40) IU/L ALT (8-54) IU/L Alkaline Phosphatase (40-150) Total Protein (6.0-8.0) g/dL Albumin (3.5-5.0) g/dL Globulin (2.0-3.5) g/dL Albumin/Globulin Ratio (1.3-2.8) Aaron Results Last 24 Hours: Microbiology 07/22/17 15:18 Aerobic Blood Culture - Preliminary Blood - Venous - Lab Draw NO GROWTH AFTER 2 DAYS Anaerobic Blood Culture - Preliminary NO GROWTH AFTER 2 DAYS 07/22/17 15:03 Aerobic Blood Culture - Preliminary Blood - Venous NO GROWTH AFTER 2 DAYS Anaerobic Blood Culture - Preliminary NO GROWTH AFTER 2 DAYS 07/23/17 10:50 Gram Stain - Preliminary Abdominal Fluid - Drainage Med Orders - Current: Current Medications Acetaminophen (Tylenol) 650 mg PO Q4H PRN PRN Reason: Pain Hydrocodone Bitart/Acetaminophen ([place] 325-5 Mg) 1 tab PO Q4H PRN PRN Reason: Pain (moderate 4-6) Last Admin: 07/24/17 04:08 Dose: 1 tab Fluoxetine HCl (Prozac) 20 mg PO DAILY [facility] [place] Last Admin: 07/24/17 09:00 Dose: 20 mg Gabapentin (Neurontin) 600 mg PO BEDTIME [facility] [place] Last Admin: 07/23/17 21:33 Dose: 600 mg Sodium Chloride (Normal Saline) 1,000 mls @ 125 mls/hr IV ASDIRECTED [facility] [place] Last Admin: 07/24/17 12:19 Dose: 125 mls/hr Piperacillin Sod/Tazobactam (Sod 3.375 gm/ Sodium Chloride) 50 mls @ 100 mls/ hr IV Q6H [facility] [place] Last Admin: 07/24/17 14:33 Dose: 100 mls/hr Insulin Aspart (Novolog) 0 unit SUBCUT ACBED [facility] [place] PRN Reason: Protocol Last Admin: 07/24/17 12:09 Dose: 4 units Insulin Glargine (Lantus Solostar) 15 units SUBCUT BID [facility] [place] Last Admin: 07/24/17 09:07 Dose: 15 units Magnesium Oxide (Magnesium Oxide) 400 mg PO BID [facility] [place] Last Admin: 07/24/17 14:33 Dose: 400 mg Morphine Sulfate (Morphine) 2 mg IVPUSH Q2H PRN PRN Reason: Pain (severe 7-10) Last Admin: 07/24/17 15:27 Dose: 2 mg Ondansetron HCl (Zofran) 4 mg IVPUSH Q4H PRN PRN Reason: Nausea Sodium Chloride (Saline Flush) 10 ml FLUSH ASDIRECTED PRN PRN Reason: Keep Vein Open Sodium Chloride (Saline Flush) 2.5 ml FLUSH ASDIRECTED PRN PRN Reason: Keep Vein Open Discontinued Medications Gabapentin (Neurontin) 600 mg PO DAILY [facility] [place] Sodium Chloride (Normal Saline) 1,000 mls @ 999 mls/hr IV STAT ONE Stop: 07/22/17 13:43 Last Admin: 07/22/17 12:49 Dose: 999 mls/hr Ceftriaxone Sodium/Dextrose 1 (gm/ Premix) 50 mls @ 100 mls/hr IV ONETIME ONE Stop: 07/22/17 13:56 Last Admin: 07/22/17 13:33 Dose: 100 mls/hr Piperacillin Sod/Tazobactam (Sod 3.375 gm/ Sodium Chloride) 50 mls @ 100 mls/ hr IV ONETIME ONE Stop: 07/22/17 15:11 Last Admin: 07/22/17 15:24 Dose: 100 mls/hr Magnesium Sulfate 4 gm/ Premix 100 mls @ 50 mls/hr IV ONETIME ONE Stop: 07/23/17 10:06 Last Admin: 07/23/17 09:05 Dose: 50 mls/hr Insulin Aspart (Novolog) 0 unit SUBCUT TIDAC [facility] PRN Reason: Protocol Last Admin: 07/22/17 17:21 Dose: Not Given Insulin Glargine (Lantus Solostar) 15 units SUBCUT BEDTIME [facility] Insulin Human Regular (Novolin R) 15 unit SUBCUT ONETIME ONE PRN Reason: Protocol Stop: 07/22/17 12:49 Last Admin: 07/22/17 12:57 Dose: 15 units Iopamidol (Isovue Multipack-370 (76%)) 60 ml IVPUSH ONETIME [facility] Stop: 07/22/17 13:52 Last Admin: 07/22/17 13:52 Dose: 60 ml Iopamidol (Isovue Multipack-370 (76%)) 10 ml IVPUSH ONETIME [facility] Stop: 07/23/17 12:04 Last Admin: 07/23/17 12:04 Dose: 10 ml Ketorolac Tromethamine (Toradol) 30 mg IVPUSH ONETIME ONE Stop: 07/22/17 12:49 Last Admin: 07/22/17 12:53 Dose: 30 mg Ondansetron HCl (Zofran) 4 mg IVPUSH ONETIME ONE Stop: 07/22/17 12:44 Last Admin: 07/22/17 12:52 Dose: 4 mg Potassium Chloride (Klor-Con M20) 40 meq PO ONETIME ONE Stop: 07/23/17 08:07 Last Admin: 07/23/17 08:41 Dose: 40 meq Potassium Chloride (Klor-Con M20) 40 meq PO ONETIME ONE Stop: 07/23/17 17:01 Last Admin: 07/23/17 16:17 Dose: 40 meq Comments:: alert conversant left perinephric drain in; purulent drainage noted it JOSE ANTONIO drain . - Problem List & Annotations (1) Diabetes mellitus SNOMED Code(s): 16000777 Code(s): E11.9 - TYPE 2 DIABETES MELLITUS WITHOUT COMPLICATIONS Status: Acute Current Visit: Yes (2) Perinephric abscess SNOMED Code(s): 34751512 Code(s): N15.1 - RENAL AND PERINEPHRIC ABSCESS Status: Acute Current Visit: Yes - Problem List Review Problem List Initiated/Reviewed/Updated: Yes - My Orders Last 24 Hours: My Active Orders 07/24/17 14:30 Magnesium Oxide 400 mg PO BID 07/26/17 05:11 MAGNESIUM [CHEM] AM 07/27/17 05:11 MAGNESIUM [CHEM] AM - Plan Plan:: This 42 year old female admitted with pernephric abscess 1. Perinephric abscess: Dr. Mary Riley to drain this morning. Will conitnue with Zosyn. BC pending. Continue Zosyn, leukocytosis improving. will need IV antibiotics for a few days. 2. DM type 1: BS improving. Will place on Novolog SSI, Lantus BID dosing as per home regimen. Will monitor closely with concurrent infection. VTE prophylaxis: SCDs for now pending procedure today. Dispo: 3-4 days pending improvement. 07/24/2017 anticipated discharge wednesday on oral antibiotics depending on culture results with outpatient follow up. I was advised today by DR Pulliam from the ED that Dr Long was made aware of the admission and recommended drainage with follow up with him as needed. Odin Maravilla MD
[2017-07-24] MEDS ORDERED: Loperamide 2 MG Cap PO PRN (19:41)
--- NOTE | 2017-07-24 19:42 | PCM.SN ---
- Free Text/Narrative Note: c dif of stool, flagyl and imodium ordered for new onset of diarrhea today.
[2017-07-24] MEDS: metroNIDAZOLE 250 MG Tab PO SCH (20:49)
[2017-07-24] MEDS: Gabapentin 300 MG Cap PO SCH (20:49)
[2017-07-25] MEDS: Piperacillin/Tazobactam 3.375 GM in Sodium Chloride 0.9% 50 ML IV SCH ×2 (02:52→09:39)
[2017-07-25] MEDS: metroNIDAZOLE 250 MG Tab PO SCH ×2 (03:01→11:06)
[2017-07-25] MEDS: Sodium Chloride 0.9% 1,000 ML IV SCH (05:29)
[2017-07-25 06:33] LABS: CHLORIDE,CL 106 mmol/L (98-110); SODIUM,NA 136 mmol/L (136-146)
[2017-07-25] MEDS: FLUoxetine 20 MG Cap PO SCH (09:23)
[2017-07-25] MEDS: Magnesium Oxide 400 MG Tab PO SCH (09:23)
[2017-07-25] MEDS: Insulin Glargine,Human Rec. Analog 100 Units/ML 3 ML Pen SUBCUT SCH (09:35)
--- NOTE | 2017-07-25 11:27 | PCM.DCSUM1 ---
Discharge Summary - Hospital Course Brief History: she was admitted with a left perinephric abscess - Discharge Data Discharge Date: 07/25/17 Discharge Disposition: Home, Self-Care 01 Condition: Good - Discharge Diagnosis/Problem(s) (1) Diabetes mellitus SNOMED Code(s): 74171699 ICD Code: E11.9 - TYPE 2 DIABETES MELLITUS WITHOUT COMPLICATIONS Status: Acute Current Visit: Yes (2) Perinephric abscess SNOMED Code(s): 49489177 ICD Code: N15.1 - RENAL AND PERINEPHRIC ABSCESS Status: Acute Current Visit: Yes - Patient Summary/Data Consults: Consultations 07/22/17 15:17 Consult to Diabetic Nurse Specialist [CONS] Routine Hospital Course: She was noted to have DM also and blood sugars were monitored with long acting and sliding scale insulin being given. Blood sugar is 147mg/dl on the morning of discharge. The perinephric abscess was drained by Dr. Larry Riley, interventional radiology and a catheter with JOSE ANTONIO drain was left in place. The abscess fluid is growing Streptococcus agalactiae in the lab at discharge. She was started on flagyl for antibiotic associated diarrhea . C dificile test was negative. I spoke with DR Long who will see her in follow up this week in the clinic. prescriptions: keflex 500 mg qid x ten days flagyl 500 mg tid x ten days. follow up also with her primary care provider. - Discharge Plan Prescriptions/Med Rec: Cephalexin [Keflex] 500 mg PO QID #40 capsule metroNIDAZOLE 500 mg PO Q8H #30 tablet Home Medications: Home Meds FLUoxetine [PROzac] 20 mg PO DAILY 07/22/17 [History] Gabapentin [Neurontin] 600 mg PO BEDTIME 07/22/17 [History] Insulin Glargine,Hum.Rec.Anlog [Lantus Solostar] 15 units SUBCUT BID 07/22/17 [ History] Insulin Lispro [Humalog Kwikpen U-100] 4 units SUBCUT TIDPC 07/22/17 [History] Cephalexin [Keflex] 500 mg PO QID #40 capsule 07/25/17 [Rx] metroNIDAZOLE 500 mg PO Q8H #30 tablet 07/25/17 [Rx] Forms: ED Department Discharge Referrals: [facility] [Outside] Stephanie Box PA [Physician Superintendent Recreation] - 07/30/17 10:15 am - Patient Data Vitals - Most Recent: Last Vital Signs Temp 98.1 F 07/25/17 08:00 Pulse 81 07/25/17 08:00 Resp 12 07/25/17 08:00 BP 119/67 07/25/17 08:00 Pulse Ox 97 07/25/17 08:00 Weight - Most Recent: 40.914 kg I&O - Last 24 hours: Intake & Output 07/24/17 07/25/17 07/25/17 22:59 06:59 14:59 Intake Total 1592 1367 Output Total 1260 1705 Balance 332 -338 Lab Results - Last 24 hrs: Laboratory Results - last 24 hr 07/24/17 07/24/17 07/24/17 Range/Units 11:19 15:59 20:56 WBC (4.0-11.0) K/uL RBC (4.30-5.90) M/uL Hgb (12.0-16.0) g/dL Hct (36.0-46.0) % MCV (80.0-98.0) fL MCH (27.0-32.0) pg MCHC (31.0-37.0) g/dL RDW Std Deviation (28.0-62.0) fl RDW Coeff of Janette (11.0-15.0) % Plt Count (150-400) K/uL MPV (7.40-12.00) fL Neut % (Auto) (48.0-80.0) % Lymph % (Auto) (16.0-40.0) % Power % (Auto) (0.0-15.0) % Eos % (Auto) (0.0-7.0) % Baso % (Auto) (0.0-1.5) % Neut # (Auto) (1.4-5.7) K/uL Lymph # (Auto) (0.6-2.4) K/uL Power # (Auto) (0.0-0.8) K/uL Eos # (Auto) (0.0-0.7) K/uL Baso # (Auto) (0.0-0.1) K/uL Nucleated RBC % /100WBC Nucleated RBCs # K/uL Sodium (136-146) mmol/L Potassium (3.5-5.1) mmol/L Chloride (98-110) mmol/L Carbon Dioxide (21-31) mmol/L BUN (6.0-23.0) mg/dL Creatinine (0.6-1.5) mg/dL Est Cr Clr Drug Dosing mL/min Estimated GFR (MDRD) ml/min Glucose (60-110) mg/dL POC Glucose 233 H 278 H 297 H (60-110) mg/dL Calcium (8.8-10.8) mg/dL Magnesium (1.5-2.3) mEq/L Total Bilirubin (0.1-1.5) mg/dL AST (5-40) IU/L ALT (8-54) IU/L Alkaline Phosphatase (40-150) Total Protein (6.0-8.0) g/dL Albumin (3.5-5.0) g/dL Globulin (2.0-3.5) g/dL Albumin/Globulin Ratio (1.3-2.8) 07/25/17 07/25/17 07/25/17 Range/Units 05:12 05:12 06:56 WBC 11.63 H (4.0-11.0) K/uL RBC 3.45 L (4.30-5.90) M/uL Hgb 9.9 L (12.0-16.0) g/dL Hct 30.6 L (36.0-46.0) % MCV 88.7 (80.0-98.0) fL MCH 28.7 (27.0-32.0) pg MCHC 32.4 (31.0-37.0) g/dL RDW Std Deviation 40.5 (28.0-62.0) fl RDW Coeff of Janette 13 (11.0-15.0) % Plt Count 536 H (150-400) K/uL MPV 9.50 (7.40-12.00) fL Neut % (Auto) 68.0 (48.0-80.0) % Lymph % (Auto) 22.5 (16.0-40.0) % Power % (Auto) 8.4 (0.0-15.0) % Eos % (Auto) 0.8 (0.0-7.0) % Baso % (Auto) 0.3 (0.0-1.5) % Neut # (Auto) 7.9 H (1.4-5.7) K/uL Lymph # (Auto) 2.6 H (0.6-2.4) K/uL Power # (Auto) 1.0 H (0.0-0.8) K/uL Eos # (Auto) 0.1 (0.0-0.7) K/uL Baso # (Auto) 0.0 (0.0-0.1) K/uL Nucleated RBC % 0.0 /100WBC Nucleated RBCs # 0 K/uL Sodium 136 (136-146) mmol/L Potassium 3.8 (3.5-5.1) mmol/L Chloride 106 (98-110) mmol/L Carbon Dioxide 25 (21-31) mmol/L BUN 3 L (6.0-23.0) mg/dL Creatinine 0.6 (0.6-1.5) mg/dL Est Cr Clr Drug Dosing 80.50 mL/min Estimated GFR (MDRD) > 60.0 ml/min Glucose 203 H (60-110) mg/dL POC Glucose 147 H (60-110) mg/dL Calcium 7.9 L (8.8-10.8) mg/dL Magnesium 1.4 L (1.5-2.3) mEq/L Total Bilirubin 0.2 (0.1-1.5) mg/dL AST 11 (5-40) IU/L ALT < 6 L (8-54) IU/L Alkaline Phosphatase 93 (40-150) Total Protein 5.5 L (6.0-8.0) g/dL Albumin 2.3 L (3.5-5.0) g/dL Globulin 3.2 (2.0-3.5) g/dL Albumin/Globulin Ratio 0.7 L (1.3-2.8) ADDISON Results - Last 24 hrs: Microbiology 07/23/17 10:50 Gram Stain - Preliminary Abdominal Fluid - Drainage Body Fluid Culture - Preliminary Streptococcus Agalactiae Grp B Anaerobic Culture - Final NO ANAEROBES ISOLATED 07/25/17 02:55 Clostridium difficile Toxin A&B (M) - Final Stool / Feces Negative for C.Diff Toxin/AG 07/22/17 15:18 Aerobic Blood Culture - Preliminary Blood - Venous - Lab Draw NO GROWTH AFTER 2 DAYS Anaerobic Blood Culture - Preliminary NO GROWTH AFTER 2 DAYS 07/22/17 15:03 Aerobic Blood Culture - Preliminary Blood - Venous NO GROWTH AFTER 2 DAYS Anaerobic Blood Culture - Preliminary NO GROWTH AFTER 2 DAYS Med Orders - Current: Current Medications Acetaminophen (Tylenol) 650 mg PO Q4H PRN PRN Reason: Pain Hydrocodone Bitart/Acetaminophen ([place] 325-5 Mg) 1 tab PO Q4H PRN PRN Reason: Pain (moderate 4-6) Last Admin: 07/24/17 04:08 Dose: 1 tab Fluoxetine HCl (Prozac) 20 mg PO DAILY [facility] Last Admin: 07/25/17 09:23 Dose: 20 mg Gabapentin (Neurontin) 600 mg PO BEDTIME [facility] Last Admin: 07/24/17 20:49 Dose: 600 mg Sodium Chloride (Normal Saline) 1,000 mls @ 125 mls/hr IV ASDIRECTED [facility] Last Admin: 07/25/17 05:29 Dose: 125 mls/hr Piperacillin Sod/Tazobactam (Sod 3.375 gm/ Sodium Chloride) 50 mls @ 100 mls/ hr IV Q6H [facility] Last Admin: 07/25/17 09:39 Dose: 100 mls/hr Insulin Aspart (Novolog) 0 unit SUBCUT ACBED [facility] PRN Reason: Protocol Last Admin: 07/24/17 21:04 Dose: 6 units Insulin Glargine (Lantus Solostar) 15 units SUBCUT BID [facility] Last Admin: 07/25/17 09:35 Dose: 15 units Loperamide HCl (Imodium) 2 mg PO Q6H PRN PRN Reason: Diarrhea Last Admin: 07/25/17 02:57 Dose: 2 mg Magnesium Oxide (Magnesium Oxide) 400 mg PO BID [facility] Last Admin: 07/25/17 09:23 Dose: 400 mg Metronidazole (Metronidazole) 500 mg PO Q8H [facility] Last Admin: 07/25/17 11:06 Dose: 500 mg Morphine Sulfate (Morphine) 2 mg IVPUSH Q2H PRN PRN Reason: Pain (severe 7-10) Last Admin: 07/24/17 21:30 Dose: 2 mg Ondansetron HCl (Zofran) 4 mg IVPUSH Q4H PRN PRN Reason: Nausea Sodium Chloride (Saline Flush) 10 ml FLUSH ASDIRECTED PRN PRN Reason: Keep Vein Open Sodium Chloride (Saline Flush) 2.5 ml FLUSH ASDIRECTED PRN PRN Reason: Keep Vein Open Discontinued Medications Gabapentin (Neurontin) 600 mg PO DAILY [facility] Sodium Chloride (Normal Saline) 1,000 mls @ 999 mls/hr IV STAT ONE Stop: 07/22/17 13:43 Last Admin: 07/22/17 12:49 Dose: 999 mls/hr Ceftriaxone Sodium/Dextrose 1 (gm/ Premix) 50 mls @ 100 mls/hr IV ONETIME ONE Stop: 07/22/17 13:56 Last Admin: 07/22/17 13:33 Dose: 100 mls/hr Piperacillin Sod/Tazobactam (Sod 3.375 gm/ Sodium Chloride) 50 mls @ 100 mls/ hr IV ONETIME ONE Stop: 07/22/17 15:11 Last Admin: 07/22/17 15:24 Dose: 100 mls/hr Magnesium Sulfate 4 gm/ Premix 100 mls @ 50 mls/hr IV ONETIME ONE Stop: 07/23/17 10:06 Last Admin: 07/23/17 09:05 Dose: 50 mls/hr Insulin Aspart (Novolog) 0 unit SUBCUT TIDAC [facility] PRN Reason: Protocol Last Admin: 07/22/17 17:21 Dose: Not Given Insulin Glargine (Lantus Solostar) 15 units SUBCUT BEDTIME [facility] Insulin Human Regular (Novolin R) 15 unit SUBCUT ONETIME ONE PRN Reason: Protocol Stop: 07/22/17 12:49 Last Admin: 07/22/17 12:57 Dose: 15 units Iopamidol (Isovue Multipack-370 (76%)) 60 ml IVPUSH ONETIME STA Stop: 07/22/17 13:52 Last Admin: 07/22/17 13:52 Dose: 60 ml Iopamidol (Isovue Multipack-370 (76%)) 10 ml IVPUSH ONETIME STA Stop: 07/23/17 12:04 Last Admin: 07/23/17 12:04 Dose: 10 ml Ketorolac Tromethamine (Toradol) 30 mg IVPUSH ONETIME ONE Stop: 07/22/17 12:49 Last Admin: 07/22/17 12:53 Dose: 30 mg Ondansetron HCl (Zofran) 4 mg IVPUSH ONETIME ONE Stop: 07/22/17 12:44 Last Admin: 07/22/17 12:52 Dose: 4 mg Potassium Chloride (Klor-Con M20) 40 meq PO ONETIME ONE Stop: 07/23/17 08:07 Last Admin: 07/23/17 08:41 Dose: 40 meq Potassium Chloride (Klor-Con M20) 40 meq PO ONETIME ONE Stop: 07/23/17 17:01 Last Admin: 07/23/17 16:17 Dose: 40 meq *Q Meaningful Use (DIS) - VTE *Q VTE Criteria *Q: - Stroke *Q Stroke Criteria *Q: - AMI *Q AMI Criteria *Q:
[2017-07-25] MEDS: Insulin Aspart 100 Units/ML 3 ML Pen SUBCUT SCH ×2 (12:07→12:20)
[2017-07-25 13:14] VITALS: BP 125/77
== END 2017-07-25 14:18 | disposition home or self-care (01) | DRG 690 ==
LOC: MW.ED 12:29 → MW.MS 14:49 → UNDOADMIN 15:10 → MW.MS 15:10
PROVIDERS: ADMIT Internal Medicine; ATTEND Internal Medicine
DX: N15.1 Renal and perinephric abscess (principal); B95.4 Other streptococcus as the cause of diseases classified elsewhere; E10.65 Type 1 diabetes mellitus with hyperglycemia; R19.7 Diarrhea, unspecified; F32.9 Major depressive disorder, single episode, unspecified; Z79.4 Long term (current) use of insulin; Z79.899 Other long term (current) drug therapy
CPT/HCPCS: 36415; 74177; 74177-26; 75989; 75989-26; 80053; 82009; 82962; 83605; 83735; 85025; 87040; 87070; 87075; 87077; 87186; 87205; 87324; 96361; 96365; 96367; 96372; 96375; 99283; 99285-25; A9270-GY; J0696; J1815-GY ×2; J1885; J2270; J2405; J2543; J3475; J7040; J7050; Q9967

== ENCOUNTER 2019-01-31 17:36 | Emergency (ER) | payer SELFPAY ==
[2019-01-31 18:04] VITALS: BP 135/61
[2019-01-31] MEDS ORDERED: Benzocaine 20% Topical Spray UD MUCMEM ONE (18:40)
[2019-01-31] MEDS ORDERED: Lidocaine 2% Viscous Solution 15 ML Cup PO ONE (18:40)
[2019-01-31] MEDS ORDERED: cefTRIAXone 1 GM Vial IM ONE (19:17)
[2019-01-31] MEDS ORDERED: Ketorolac 60 MG/2 ML SDV IM ONE (19:17)
--- NOTE | 2019-01-31 19:23 | EDM.PDOC ---
ED HPI GENERAL MEDICAL PROBLEM - General Chief Complaint: Skin Complaint Stated Complaint: TOOTH PAIN Time Seen by Provider: 01/31/19 19:17 Source of Information: Reports: Patient History Limitations: Reports: No Limitations - History of Present Illness INITIAL COMMENTS - FREE TEXT/NARRATIVE: HISTORY AND PHYSICAL: History of present illness: Patient is a 43-year-old female here with complaint of tooth pain. She states she broke a tooth a few days ago. Swelling started 2 days ago. She reports she is unable to get into her dentist for 2-3 weeks. She denies fevers, chills, nausea, or vomiting. Past medical history of diabetes. Review of systems: As per history of present illness and below otherwise all systems reviewed and negative. Past medical history: As per history of present illness and as reviewed below otherwise noncontributory. Surgical history: As per history of present illness and as reviewed below otherwise noncontributory. Social history: No reported history of drug or alcohol abuse. Family history: As per history of present illness and as reviewed below otherwise noncontributory. Physical exam: General: Patient sitting comfortably in no acute distress and nontoxic appearing HEENT: Right cheek is swollen. There is a poor dentition throughout. There is a broke tooth #3 with surrounding gum swelling and erythema. Atraumatic, normocephalic, pupils reactive, negative for conjunctival pallor or scleral icterus, mucous membranes moist, throat clear, neck supple, nontender, trachea midline. No meningeal signs. Lungs: Clear to auscultation, breath sounds equal bilaterally, chest nontender. Heart: S1S2, regular, negative for clicks, rubs, or overt murmur. Abdomen: Soft, nondistended, nontender. Negative for masses or hepatosplenomegaly. Negative for costovertebral tenderness. No rigidity, rebound , guarding. Pelvis: Stable nontender. Genitourinary: Deferred. Rectal: Deferred. Extremities: Atraumatic, negative for cords or calf pain. Neurovascular unremarkable. Neuro: Awake, alert, oriented. Cranial nerves II through XII unremarkable. Cerebellum unremarkable. Motor and sensory unremarkable throughout. Exam nonfocal. Notes: Diagnostics: None Therapeutics: 1g Rocephin IM 60mg Toradol IM Dental balls Prescriptions: Augmentin Impression: Dentalgia, dental infection Plan: 1. Take antibiotic and use dental balls as instructed. Alternate tylenol and motrin as needed. 2. Follow up with dentist 3. Return to ED as needed as discussed Definitive disposition and diagnosis as appropriate pending reevaluation and review of above. Right Face/Facial Pain Score (Numeric/FACES): 9 - Related Data Allergies Allergy/AdvReac Type Severity Reaction Status Date / Time No Known Allergies Allergy Verified 01/31/19 18:04 Home Meds: Home Meds Amoxicillin/Potassium Clav [Augmentin 875-125 Tablet] 1 each PO BID 7 Days #14 tablet 01/31/19 [Rx] Past Medical History HEENT History: Reports: None Cardiovascular History: Reports: None Respiratory History: Reports: None Gastrointestinal History: Reports: None Genitourinary History: Reports: None TEAM DRIVER History: Reports: , Other (See Below) Other TEAM DRIVER History: tubal ligation Musculoskeletal History: Reports: None Neurological History: Reports: Neuropathy, Diabetic Psychiatric History: Reports: Depression Endocrine/Metabolic History: Reports: Diabetes, Type II Hematologic History: Reports: None Immunologic History: Reports: None Oncologic (Cancer) History: Reports: None Dermatologic History: Reports: None - Infectious Disease History Infectious Disease History: Reports: Chicken Pox - Past Surgical History HEENT Surgical History: Reports: None Cardiovascular Surgical History: Reports: None Respiratory Surgical History: Reports: None GI Surgical History: Reports: None Female Surgical History: Reports: Section Endocrine Surgical History: Reports: None Neurological Surgical History: Reports: None Musculoskeletal Surgical History: Reports: None Oncologic Surgical History: Reports: None Social & Family History - Family History Family Medical History: Noncontributory - Tobacco Use Smoking Status *Q: Never Smoker - Caffeine Use Caffeine Use: Reports: Coffee, Tea - Recreational Drug Use Recreational Drug Use: No - Living Situation & Occupation Living situation: Reports: ED ROS GENERAL - Review of Systems Review Of Systems: ROS reveals no pertinent complaints other than HPI. ED EXAM, SKIN/RASH Exam: See Below (see dictation) Course - Vital Signs Last Recorded V/S: Last Vital Signs Temp 98.0 F 01/31/19 17:59 Pulse 92 01/31/19 17:59 Resp 18 01/31/19 17:59 BP 135/61 01/31/19 17:59 Pulse Ox 100 01/31/19 17:59 - Orders/Labs/Meds Meds: Medications Discontinued Medications Generic Name Dose Route Start Last Admin Trade Name Madhu PRN Reason Stop Dose Admin Benzocaine 2 each 01/31/19 18:40 Hurricaine One 20% MUCMEM 01/31/19 18:41 ONETIME ONE Lidocaine HCl 15 ml 01/31/19 18:40 Xylocaine 2% Viscous PO 01/31/19 18:41 ONETIME ONE Departure - Departure Time of Disposition: 19:23 Disposition: Home, Self-Care 01 Condition: Good Clinical Impression: Dentalgia, Dental infection - Discharge Information Prescriptions: Amoxicillin/Potassium Clav [Augmentin 875-125 Tablet] 1 each PO BID 7 Days #14 tablet Referrals: PCP,None [Primary Care Provider] - Additional Instructions: The following information is given to patients seen in the emergency department who are being discharged to home. This information is to outline your options for follow-up care. We provide all patients seen in our emergency department with a follow-up referral. The need for follow-up, as well as the timing and circumstances, are variable depending upon the specifics of your emergency department visit. If you don't have a primary care physician on staff, we will provide you with a referral. We always advise you to contact your personal physician following an emergency department visit to inform them of the circumstance of the visit and for follow-up with them and/or the need for any referrals to a consulting specialist. The emergency department will also refer you to a specialist when appropriate. This referral assures that you have the opportunity for follow-up care with a specialist. All of these measure are taken in an effort to provide you with optimal care, which includes your follow-up. Under all circumstances we always encourage you to contact your private physician who remains a resource for coordinating your care. When calling for follow-up care, please make the office aware that this follow-up is from your recent emergency room visit. If for any reason you are refused follow-up, please contact the [facility] Emergency Department at and asked to speak to the emergency department charge nurse. [facility] [address] [place] [id number] [place] [address] 1. Take antibiotic and use dental balls as instructed. Alternate tylenol and motrin as needed. 2. Follow up with dentist 3. Return to ED as needed as discussed
[2019-01-31] MEDS ORDERED: Lidocaine 1% 2 ML ONE (19:37)
== END 2019-01-31 20:13 | disposition home or self-care (01) ==
LOC: MW.ED 17:36
DX: K04.7 Periapical abscess without sinus (principal); E11.9 Type 2 diabetes mellitus without complications
CPT/HCPCS: 96372; 99283; A9270; J0696; J1885